=== PATIENT | female | born 1995 | race Caucasian/White ===

== ENCOUNTER 2017-07-18 22:53 | Emergency (ER) | payer OTHER ==
[~2017-07-18] VITALS: Ht 149.9 cm; Wt 56.8 kg
[~2017-07-18 22:53] MED LIST: AMITRIPTYLINE H10 M1 PO; BIRTH CONTROL PILLS; LAMICTAL150 MG PO; MINIPRESS2 MG PO; SEROQUEL400 MG PO; ZYPREXA15 MG PO
[2017-07-18 22:55] VITALS: BP 138/71; PULSE 118; TEMP 97.6
[2017-07-18] MEDS ORDERED: DEPAKOTE500 MG PO (23:01)
== END 2017-07-19 00:30 | disposition home or self-care (01) ==
LOC: COL.ER 22:53
DX: S71.111A Laceration without foreign body, right thigh, initial encounter (principal); F32.9 Major depressive disorder, single episode, unspecified; X83.8XXA Intentional self-harm by other specified means, initial encounter; Y92.009 Unspecified place in unspecified non-institutional (private) residence as the place of occurrence of the external cause

== ENCOUNTER 2017-07-25 16:48 | Emergency (ER) | payer OTHER ==
[~2017-07-25 16:48] MED LIST changes: +DEPAKOTE500 MG PO
[2017-07-25 16:52] VITALS: BP 122/56; PULSE 100; TEMP 98.4
== END 2017-07-25 17:07 | disposition home or self-care (01) ==
LOC: COL.ER 16:48
DX: Z48.02 Encounter for removal of sutures (principal)

== ENCOUNTER → 2017-10-24 | Outpatient (CLI) | payer OTHER | LOC: COL.RAD 07:58 | DX: R59.0 Localized enlarged lymph nodes (principal) ==

== ENCOUNTER → 2017-12-21 | Outpatient (CLI) | payer OTHER ==
[2017-12-21 22:49] LABS: RHEUMATOID FACTOR-SCREEN <15 IU/mL (0-29)
== END ==
LOC: COL.RAD 13:01
PROVIDERS: Family Medicine
DX: M25.542 Pain in joints of left hand (principal); M25.541 Pain in joints of right hand

== ENCOUNTER → 2018-01-03 | Outpatient (CLI) | payer OTHER ==
[2018-01-03 11:52] LABS: BASO # 0.1 (0.0-0.2); EOS # 0.2 (0.0-0.7); EOS % 2.6 % (0-4.0); GRAN % 54.9 % (42.2-75.2); HEMATOCRIT 39.3 % (37.0-47.0); LYMPH % 32.6 % (20.0-51.0); MEAN CELL VOLUME 95 fl (80.0-100.0); MEAN CORPUSCULAR HEMOGLOBIN 32 pg (27.0-31.0); MEAN CORPUSCULAR HGB CONC 33 g/dl (33.0-37.0); MEAN PLATELET VOLUME 8.5 fl (7.4-10.4); MONO # 0.7 (0.1-0.6); MONO % 7.7 % (1.7-9.3); PLATELET COUNT 460 K/mm3 (130-400); RED BLOOD COUNT 4.12 M/mm3 (4.10-5.30); REDCELL DISTRIBUTION WIDTH-CV 13.6 % (11.5-14.5)
[2018-01-04 01:09] LABS: COMPLEMENT-C3 232 mg/dL (79-152); COMPLEMENT-C4 26 mg/dL (18-55)
== END ==
LOC: COL.LAB 11:11
PROVIDERS: Family Medicine
DX: M25.50 Pain in unspecified joint (principal); R76.8 Other specified abnormal immunological findings in serum

== ENCOUNTER → 2018-03-27 | Outpatient (CLI) | payer OTHER ==
[2018-03-27 09:34] LABS: BASO % 0.4 % (0.0-2.0); EOS # 0.2 (0.0-0.7); EOS % 1.8 % (0-4.0); GRAN # 4.9 (1.4-6.5); GRAN % 51.6 % (42.2-75.2); HEMOGLOBIN 11.7 g/dl (12.5-16.0); LYMPH # 3.6 (1.2-3.4); MEAN CELL VOLUME 96 fl (80.0-100.0); MEAN CORPUSCULAR HEMOGLOBIN 32 pg (27.0-31.0); MEAN CORPUSCULAR HGB CONC 34 g/dl (33.0-37.0); MONO # 0.8 (0.1-0.6); MONO % 7.9 % (1.7-9.3); PLATELET COUNT 309 K/mm3 (130-400); RED BLOOD COUNT 3.61 M/mm3 (4.10-5.30); REDCELL DISTRIBUTION WIDTH-CV 14.2 % (11.5-14.5)
[2018-03-27 09:35] LABS: HEMATOCRIT 34.6 % (37.0-47.0)
[2018-03-27 09:55] LABS: ALBUMIN 3.5 gm/dL (3.5-5.0); BILIRUBIN,DIRECT 0.1 mg/dL (0.0-0.4); BILIRUBIN,TOTAL 0.1 mg/dL (0.0-1.0); LITHIUM 0.3 mmol/L (0.6-1.2); TOTAL PROTEIN 6.7 gm/dL (6.4-8.2)
[2018-03-27 09:59] LABS: VALPROIC ACID (DEPAKENE) 56.5 ug/mL (50.0-100.0)
[2018-03-27 10:40] LABS: THYROID STIMULATING HORMONE 9.84 uIU/mL (0.465-4.680)
== END ==
LOC: COL.LAB 08:34
PROVIDERS: Psychiatry & Neurology Psychiatry
DX: Z79.899 Other long term (current) drug therapy (principal)

== ENCOUNTER → 2018-04-09 | Outpatient (CLI) | payer OTHER ==
[2018-04-09 14:05] LABS: BASO # 0.1 (0.0-0.2); BASO % 0.6 % (0.0-2.0); EOS # 0.1 (0.0-0.7); EOS % 1.4 % (0-4.0); GRAN # 4.8 (1.4-6.5); GRAN % 60.5 % (42.2-75.2); HEMOGLOBIN 11.5 g/dl (12.5-16.0); LYMPH # 2.2 (1.2-3.4); LYMPH % 27.9 % (20.0-51.0); MEAN CELL VOLUME 95 fl (80.0-100.0); MEAN CORPUSCULAR HEMOGLOBIN 31 pg (27.0-31.0); MEAN CORPUSCULAR HGB CONC 32 g/dl (33.0-37.0); MONO # 0.7 (0.1-0.6); MONO % 9.3 % (1.7-9.3); PLATELET COUNT 359 K/mm3 (130-400); RED BLOOD COUNT 3.75 M/mm3 (4.10-5.30); REDCELL DISTRIBUTION WIDTH-CV 14.4 % (11.5-14.5)
[2018-04-09 14:06] LABS: HEMATOCRIT 35.5 % (37.0-47.0)
[2018-04-09 14:22] LABS: ALBUMIN 3.6 gm/dL (3.5-5.0); BILIRUBIN,DIRECT 0.2 mg/dL (0.0-0.4); BILIRUBIN,TOTAL 0.3 mg/dL (0.0-1.0); TOTAL PROTEIN 6.8 gm/dL (6.4-8.2)
[2018-04-09 14:27] LABS: VALPROIC ACID (DEPAKENE) 39.3 ug/mL (50.0-100.0)
[2018-04-09 14:35] LABS: LITHIUM 0.4 mmol/L (0.6-1.2)
[2018-04-09 15:11] LABS: THYROID STIMULATING HORMONE 4.85 uIU/mL (0.465-4.680)
== END ==
LOC: COL.LAB 13:30
PROVIDERS: Counselor
DX: Z79.899 Other long term (current) drug therapy (principal)

== ENCOUNTER → 2018-04-26 | Outpatient (CLI) | payer OTHER ==
[2018-04-26 11:57] LABS: THYROID STIMULATING HORMONE 13.5 uIU/mL (0.465-4.680)
[2018-04-26 23:37] LABS: T3 FREE (TRI-IODOTHYRONINE) 1.9 pg/mL (1.7-3.7)
== END ==
LOC: COL.LAB 10:15
PROVIDERS: Family Medicine
DX: R94.6 Abnormal results of thyroid function studies (principal); R06.00 Dyspnea, unspecified

== ENCOUNTER → 2018-06-03 | Outpatient (CLI) | payer OTHER ==
[2018-06-03 17:47] LABS: COLLECTION METHOD CLEAN CATCH
[2018-06-03 17:57] LABS: MUCOUS Present /lpf; PH 5 (5-8); URINE APPEARANCE Turbid; URINE BACTERIA None Seen /hpf; URINE BILIRUBIN Negative (NEGATIVE); URINE BLOOD 1+ (NEGATIVE); URINE COLOR Amber; URINE GLUCOSE Negative (NEGATIVE); URINE KETONE Negative (NEGATIVE); URINE LEUKOCYTE ESTERASE Negative (NEGATIVE); URINE NITRATE Negative (NEGATIVE); URINE PROTEIN(semi-quant) 1+ (NEGATIVE); URINE UROBILINOGEN Negative (NEGATIVE)
== END ==
LOC: ZCOL.LAB 17:30
PROVIDERS: Family Medicine
DX: R35.1 Nocturia (principal)

== ENCOUNTER → 2018-06-10 | Outpatient (CLI) | payer OTHER | LOC: COL.RAD 10:30 | DX: E04.9 Nontoxic goiter, unspecified (principal) ==

== ENCOUNTER 2018-07-01 18:26 | Emergency (ER) | payer OTHER ==
[~2018-07-01] VITALS: Ht 149.9 cm; Wt 68.2 kg
[2018-07-01 19:08] LABS: BASO # 0.1 (0.0-0.2); BASO % 0.6 % (0.0-2.0); EOS % 0.2 % (0-4.0); GRAN # 11.3 (1.4-6.5); GRAN % 72.4 % (42.2-75.2); HEMATOCRIT 37.9 % (37.0-47.0); HEMOGLOBIN 12.5 g/dl (12.5-16.0); LYMPH # 3.1 (1.2-3.4); LYMPH % 19.6 % (20.0-51.0); MEAN CELL VOLUME 94 fl (80.0-100.0); MEAN CORPUSCULAR HEMOGLOBIN 31 pg (27.0-31.0); MEAN CORPUSCULAR HGB CONC 33 g/dl (33.0-37.0); MEAN PLATELET VOLUME 8.6 fl (7.4-10.4); MONO # 1.1 (0.1-0.6); MONO % 6.8 % (1.7-9.3); PLATELET COUNT 409 K/mm3 (130-400); RED BLOOD COUNT 4.04 M/mm3 (4.10-5.30); REDCELL DISTRIBUTION WIDTH-CV 14.3 % (11.5-14.5)
[2018-07-01 19:22] LABS: ALANINE AMINOTRANSFERASE 22 U/L (9-52); ALBUMIN 3.9 gm/dL (3.5-5.0); ALKALINE PHOSPHATASE 74 U/L (50-136); ANION GAP 8 mmol/L (7-16); AST,SGOT 22 U/L (15-37); BILIRUBIN,TOTAL 0.2 mg/dL (0.0-1.0); BLOOD UREA NITROGEN 10 mg/dL (7-17); CALCIUM 9.1 mg/dL (8.4-10.2); CARBON DIOXIDE 24 mmol/L (22-30); CHLORIDE 108 mmol/L (98-107); CREATININE, serum 0.81 mg/dL (0.52-1.25); GLUCOSE 86 mg/dL (74-106); SODIUM 140 mmol/L (137-145); TOTAL PROTEIN 7.2 gm/dL (6.4-8.2)
[2018-07-01 19:24] LABS: ACETAMINOPHEN < 10 ug/mL (10-30); ALCOHOL(ethanol),MEDICAL < 10 mg/dL; SALICYLATE < 1.0 mg/dL
[2018-07-01 21:17] LABS: COLLECTION METHOD CLEAN CATCH
[2018-07-01 21:35] LABS: MUCOUS Present /lpf; PH 5 (5-8); URINE APPEARANCE Hazy; URINE BACTERIA None Seen /hpf; URINE BILIRUBIN Negative (NEGATIVE); URINE BLOOD 2+ (NEGATIVE); URINE COLOR Yellow; URINE GLUCOSE Negative (NEGATIVE); URINE KETONE 1+ (NEGATIVE); URINE LEUKOCYTE ESTERASE Trace (NEGATIVE); URINE NITRATE Negative (NEGATIVE); URINE PROTEIN(semi-quant) 1+ (NEGATIVE); URINE RBC 0-2 /hpf; URINE UROBILINOGEN Negative (NEGATIVE)
[2018-07-01 21:42] LABS: TRICYCLIC ANTIDEPRESS URINE POSITIVE
[2018-07-01 22:01] LABS: COLLECTION METHOD CATHETER
[2018-07-01 22:10] LABS: MUCOUS Present /lpf; PH 5 (5-8); SQUAMOUS EPITHELIAL 0-2 /hpf; URINE APPEARANCE Clear; URINE BACTERIA None Seen /hpf; URINE BILIRUBIN Negative (NEGATIVE); URINE BLOOD 2+ (NEGATIVE); URINE COLOR Yellow; URINE GLUCOSE Negative (NEGATIVE); URINE KETONE 1+ (NEGATIVE); URINE LEUKOCYTE ESTERASE Trace (NEGATIVE); URINE NITRATE Negative (NEGATIVE); URINE PROTEIN(semi-quant) 1+ (NEGATIVE)
[2018-07-02 00:45] VITALS: TEMP 98.8
[2018-07-02] MEDS ORDERED: CEFTIN 250250 MG/TAB PO (03:01)
[2018-07-02 04:12] VITALS: BP 123/80; PULSE 107
== END 2018-07-02 05:08 | disposition home or self-care (01) ==
LOC: COL.ER 18:26
PROVIDERS: Nurse Practitioner
DX: S71.112A Laceration without foreign body, left thigh, initial encounter (principal); F32.9 Major depressive disorder, single episode, unspecified; F20.9 Schizophrenia, unspecified; Z23 Encounter for immunization; X78.9XXA Intentional self-harm by unspecified sharp object, initial encounter

== ENCOUNTER 2018-10-22 15:19 | Emergency (ER) | payer OTHER ==
[~2018-10-22] VITALS: Ht 149.9 cm; Wt 63.6 kg
[~2018-10-22 15:19] MED LIST changes: +CEFTIN 250250 MG/TAB PO
[2018-10-22 16:11] LABS: COLLECTION METHOD CLEAN CATCH
[2018-10-22 16:20] LABS: MUCOUS Present /lpf; PH 5 (5-8); SQUAMOUS EPITHELIAL 0-2 /hpf; URINE APPEARANCE Clear; URINE BACTERIA Rare /hpf; URINE BILIRUBIN Negative (NEGATIVE); URINE BLOOD 1+ (NEGATIVE); URINE COLOR Yellow; URINE GLUCOSE Negative (NEGATIVE); URINE KETONE Negative (NEGATIVE); URINE LEUKOCYTE ESTERASE 1+ (NEGATIVE); URINE NITRATE Negative (NEGATIVE); URINE PROTEIN(semi-quant) Negative (NEGATIVE)
[2018-10-22 16:26] LABS: BASO # 0.1 (0.0-0.2); BASO % 0.4 % (0.0-2.0); EOS # 0.1 (0.0-0.7); EOS % 0.4 % (0-4.0); GRAN # 9.3 (1.4-6.5); GRAN % 68.4 % (42.2-75.2); HEMATOCRIT 38.7 % (37.0-47.0); HEMOGLOBIN 12.8 g/dl (12.5-16.0); LYMPH # 3.2 (1.2-3.4); LYMPH % 23.3 % (20.0-51.0); MEAN CELL VOLUME 88 fl (80.0-100.0); MEAN CORPUSCULAR HEMOGLOBIN 29 pg (27.0-31.0); MEAN CORPUSCULAR HGB CONC 33 g/dl (33.0-37.0); MEAN PLATELET VOLUME 8.8 fl (7.4-10.4); MONO % 7.3 % (1.7-9.3); PLATELET COUNT 566 K/mm3 (130-400); RED BLOOD COUNT 4.38 M/mm3 (4.10-5.30); REDCELL DISTRIBUTION WIDTH-CV 15.4 % (11.5-14.5)
[2018-10-22 16:32] LABS: TRICYCLIC ANTIDEPRESS URINE POSITIVE
[2018-10-22 17:22] LABS: ALANINE AMINOTRANSFERASE 19 U/L (9-52); ALBUMIN 4.1 gm/dL (3.5-5.0); ALKALINE PHOSPHATASE 116 U/L (50-136); ANION GAP 10 mmol/L (7-16); AST,SGOT 36 U/L (15-37); BILIRUBIN,TOTAL 0.2 mg/dL (0.0-1.0); BLOOD UREA NITROGEN 7 mg/dL (7-17); CALCIUM 9.2 mg/dL (8.4-10.2); CARBON DIOXIDE 22 mmol/L (22-30); CHLORIDE 105 mmol/L (98-107); CREATININE, serum 0.73 (0.52-1.25); GLUCOSE 109 mg/dL (74-106); POTASSIUM 3.9 mmol/L (3.4-5.0); SODIUM 137 mmol/L (137-145); TOTAL PROTEIN 7.6 gm/dL (6.4-8.2)
[2018-10-22 17:34] LABS: ACETAMINOPHEN < 10 ug/mL (10-30); ALCOHOL(ethanol),MEDICAL < 10 mg/dL; SALICYLATE < 1.0 mg/dL
[2018-10-22] MEDS ORDERED: KLONOPIN WAFE0.25 MG PO (19:43)
[2018-10-22] MEDS ORDERED: NEURONTIN300 MG/CAP PO (19:43)
[2018-10-22] MEDS ORDERED: WELLBUTRIN XL150 MG PO (19:43)
[2018-10-22] MEDS ORDERED: SYNTHROID0.075 MG/T PO (19:44)
[2018-10-22] MEDS ORDERED: LEVORA-28 30 MC1 TA1 PO (19:44)
[2018-10-22] MEDS ORDERED: LATUDA80 MG PO (19:44)
[2018-10-22] MEDS ORDERED: MINIPRESS2 MG (19:44)
[2018-10-22] MEDS ORDERED: ZOLOFT 25MG25 MG PO (19:45)
[2018-10-22] MEDS ORDERED: SEROQUEL400 MG PO (19:45)
[2018-10-23 07:01] VITALS: BP 102/61; PULSE 101; TEMP 97.4
== END 2018-10-23 08:12 ==
LOC: COL.ER 15:19
PROVIDERS: Nurse Practitioner
DX: S71.111A Laceration without foreign body, right thigh, initial encounter (principal); F32.9 Major depressive disorder, single episode, unspecified; F43.10 Post-traumatic stress disorder, unspecified; F20.0 Paranoid schizophrenia; Z91.5 Personal history of self-harm; X78.9XXA Intentional self-harm by unspecified sharp object, initial encounter
CPT/HCPCS: J1885; J7030

== ENCOUNTER 2018-10-30 10:12 | Emergency (ER) | payer OTHER ==
[~2018-10-30 10:12] MED LIST changes: +KLONOPIN WAFE0.25 MG PO; +LATUDA80 MG PO; +LEVORA-28 30 MC1 TA1 PO; +MINIPRESS2 MG; +NEURONTIN300 MG/CAP PO; +SYNTHROID0.075 MG/T PO; +WELLBUTRIN XL150 MG PO; +ZOLOFT 25MG25 MG PO
[2018-10-30 10:18] VITALS: BP 117/72; PULSE 107; TEMP 98.6
== END 2018-10-30 10:26 | disposition home or self-care (01) ==
LOC: COL.ER 10:12
DX: S71.111D Laceration without foreign body, right thigh, subsequent encounter (principal)

== ENCOUNTER → 2020-03-23 | Outpatient (CLI) | payer OTHER ==
[2020-03-23 16:20] LABS: ALBUMIN 4.6 gm/dL (3.5-5.0); BILIRUBIN,TOTAL 0.4 mg/dL (0.0-1.0); CALCIUM 9.6 mg/dL (8.4-10.2); CHOLESTEROL RISK RATIO 3.2; CREATININE, serum 0.91 (0.52-1.25); TOTAL PROTEIN 7.9 gm/dL (6.4-8.2)
[2020-03-23 16:36] LABS: PROLACTIN 99.9 ng/mL (3.0-18.6)
== END ==
LOC: COL.LAB 14:56
DX: F25.0 Schizoaffective disorder, bipolar type (principal); F33.1 Major depressive disorder, recurrent, moderate; F43.10 Post-traumatic stress disorder, unspecified

== ENCOUNTER → 2020-11-03 | Outpatient (CLI) | payer OTHER ==
[2020-11-03 13:41] LABS: ALBUMIN 4.6 gm/dL (3.5-5.0); BILIRUBIN,TOTAL 0.1 mg/dL (0.0-1.0); CALCIUM 9.5 mg/dL (8.4-10.2); CHOLESTEROL RISK RATIO 2.8; CREATININE, serum 0.84 (0.52-1.25); TOTAL PROTEIN 8.3 gm/dL (6.4-8.2)
[2020-11-03 13:57] LABS: PROLACTIN 12.9 ng/mL (3.0-18.6)
== END ==
LOC: COL.LAB 12:59
PROVIDERS: Nurse Practitioner Psychiatric/Mental Health
DX: F25.8 Other schizoaffective disorders (principal); F33.1 Major depressive disorder, recurrent, moderate

== ENCOUNTER 2021-08-02 13:25 | Emergency (ER) | payer OTHER ==
[~2021-08-02] VITALS: Ht 149.9 cm; Wt 50.0 kg
[2021-08-02 14:01] VITALS: TEMP 98.2
[2021-08-02 18:08] VITALS: BP 112/63; PULSE 79
== END 2021-08-02 19:08 | disposition home or self-care (01) ==
LOC: COL.ER 13:25
DX: S71.112A Laceration without foreign body, left thigh, initial encounter (principal); F41.9 Anxiety disorder, unspecified; F32.A Depression, unspecified; F43.10 Post-traumatic stress disorder, unspecified; F25.9 Schizoaffective disorder, unspecified; X78.8XXA Intentional self-harm by other sharp object, initial encounter

== ENCOUNTER → 2021-08-13 | Outpatient (CLI) | payer OTHER ==
[2021-08-13 09:21] VITALS: BP 104/67; PULSE 54; TEMP 97.8
== END ==
LOC: COL.ER 09:15
DX: Z48.02 Encounter for removal of sutures (principal)

== ENCOUNTER 2021-08-24 20:21 | Emergency (ER) | payer OTHER ==
[~2021-08-24] VITALS: Ht 149.9 cm; Wt 50.0 kg
[2021-08-24 21:10] LABS: TRICYCLIC ANTIDEPRESS URINE NEGATIVE
[2021-08-24 21:50] LABS: BASO # 0.1 K/mm3 (0.0-0.2); BASO % 0.5 % (0.0-2.0); EOS # 0.1 K/mm3 (0.0-0.7); EOS % 0.9 % (0.0-4.0); GRAN # 7.7 K/mm3 (1.4-6.5); HEMATOCRIT 41.4 % (37.0-47.0); HEMOGLOBIN 13.5 g/dl (12.5-16.0); LYMPH # 2.4 K/mm3 (1.2-3.4); LYMPH % 21.7 % (20.0-51.0); MEAN CELL VOLUME 100 fl (80.0-100.0); MEAN CORPUSCULAR HEMOGLOBIN 33 pg (27-31); MEAN CORPUSCULAR HGB CONC 33 g/dl (33.0-37.0); MONO # 0.7 K/mm3 (0.1-0.6); MONO % 6.7 % (1.7-9.3); PLATELET COUNT 370 K/mm3 (130-400); RED BLOOD COUNT 4.16 M/mm3 (4.10-5.30); REDCELL DISTRIBUTION WIDTH-CV 12.6 % (11.5-14.5)
[2021-08-24 22:08] LABS: ALANINE AMINOTRANSFERASE 43 U/L (0-55); ALBUMIN 3.9 gm/dL (3.5-5.0); ALKALINE PHOSPHATASE 117 U/L (40-150); ANION GAP 7 mmol/L (7-16); AST,SGOT 25 U/L (5-34); BILIRUBIN,TOTAL 0.3 mg/dL (0.2-1.2); BLOOD UREA NITROGEN 8 mg/dL (7-19); CALCIUM 9.1 mg/dL (8.4-10.2); CARBON DIOXIDE 24 mmol/L (22-29); CHLORIDE 107 mmol/L (98-107); CREATININE, serum 0.77 mg/dL (0.57-1.11); GLUCOSE 91 mg/dL (70-99); POTASSIUM 3.8 mmol/L (3.5-4.5); SODIUM 138 mmol/L (136-145); TOTAL PROTEIN 6.8 gm/dL (6.2-8.1)
[2021-08-24 22:10] LABS: ALCOHOL(ethanol),MEDICAL < 10 mg/dL (0-10); SALICYLATE < 5.0 mg/dL (15.0-30.0)
[2021-08-24 23:59] VITALS: BP 118/65; PULSE 70; TEMP 98.6
== END 2021-08-24 23:59 | disposition home or self-care (01) ==
LOC: COL.ER 20:21
PROVIDERS: Personal Emergency Response Attendant
DX: T22.212A Burn of second degree of left forearm, initial encounter (principal); R45.851 Suicidal ideations; F43.10 Post-traumatic stress disorder, unspecified; F25.9 Schizoaffective disorder, unspecified; F32.A Depression, unspecified; E06.9 Thyroiditis, unspecified; Z79.890 Hormone replacement therapy; Z79.899 Other long term (current) drug therapy; X76.XXXA Intentional self-harm by smoke, fire and flames, initial encounter

== ENCOUNTER → 2021-09-27 | Outpatient (CLI) | payer OTHER ==
[2021-09-27 11:17] LABS: BASO # 0.1 K/mm3 (0.0-0.2); BASO % 0.5 % (0.0-2.0); EOS % 0.2 % (0.0-4.0); GRAN # 9.1 K/mm3 (1.4-6.5); GRAN % 82.6 % (42.2-75.2); HEMATOCRIT 38.3 % (37.0-47.0); HEMOGLOBIN 12.8 g/dl (12.5-16.0); LYMPH # 1.2 K/mm3 (1.2-3.4); MEAN CELL VOLUME 95 fl (80.0-100.0); MEAN CORPUSCULAR HEMOGLOBIN 32 pg (27-31); MEAN CORPUSCULAR HGB CONC 33 g/dl (33.0-37.0); MEAN PLATELET VOLUME 8.7 fl (7.4-10.4); MONO # 0.6 K/mm3 (0.1-0.6); MONO % 5.4 % (1.7-9.3); PLATELET COUNT 444 K/mm3 (130-400); RED BLOOD COUNT 4.03 M/mm3 (4.10-5.30); REDCELL DISTRIBUTION WIDTH-CV 13.1 % (11.5-14.5)
[2021-09-27 11:32] LABS: ALBUMIN 3.9 gm/dL (3.5-5.0); BILIRUBIN,TOTAL 0.8 mg/dL (0.2-1.2); CALCIUM 9.3 mg/dL (8.4-10.2); CHOLESTEROL RISK RATIO 2.4; CREATININE, serum 1.02 mg/dL (0.57-1.11); PHOSPHOROUS 4.6 mg/dL (2.3-4.7); POTASSIUM 4.1 mmol/L (3.5-4.5); TOTAL PROTEIN 7.2 gm/dL (6.2-8.1)
[2021-09-27 11:51] LABS: THYROID STIMULATING HORMONE 0.843 uIU/mL (0.350-4.940)
[2021-09-27 12:08] LABS: BILIRUBIN,DIRECT 0.3 mg/dL (0.0-0.5)
== END ==
LOC: COL.LAB 10:50
PROVIDERS: Nurse Practitioner Psychiatric/Mental Health
DX: Z79.899 Other long term (current) drug therapy (principal)

== ENCOUNTER 2021-11-30 15:10 | Emergency (ER) | payer OTHER ==
[~2021-11-30] VITALS: Ht 149.9 cm; Wt 49.5 kg
[2021-11-30 15:52] VITALS: TEMP 97.9
[2021-11-30 17:50] VITALS: BP 131/83; PULSE 89
== END 2021-11-30 17:50 | disposition home or self-care (01) ==
LOC: COL.ER 15:10
DX: S81.812A Laceration without foreign body, left lower leg, initial encounter (principal); Z23 Encounter for immunization; X78.8XXA Intentional self-harm by other sharp object, initial encounter

== ENCOUNTER 2021-12-04 22:46 | Emergency (ER) | payer OTHER ==
[~2021-12-04] VITALS: Ht 149.9 cm; Wt 48.2 kg
[2021-12-04 22:55] VITALS: BP 106/33; TEMP 97.7
[2021-12-04] MEDS ORDERED: VRAYLAR6 MG PO (23:00)
[2021-12-04 23:28] VITALS: PULSE 56
== END 2021-12-04 23:28 | disposition home or self-care (01) ==
LOC: COL.ER 22:46
DX: S81.812D Laceration without foreign body, left lower leg, subsequent encounter (principal); Z91.51 Personal history of suicidal behavior; W26.0XXD Contact with knife, subsequent encounter

== ENCOUNTER 2021-12-05 13:29 | Emergency (ER) | payer OTHER ==
[~2021-12-05] VITALS: Ht 149.9 cm; Wt 48.2 kg
[~2021-12-05 13:29] MED LIST changes: +VRAYLAR6 MG PO
[2021-12-05 14:45] LABS: BASO % 0.6 % (0.0-2.0); EOS # 0.1 K/mm3 (0.0-0.7); EOS % 1.2 % (0.0-4.0); GRAN # 4.5 K/mm3 (1.4-6.5); GRAN % 65.1 % (42.2-75.2); LYMPH # 1.7 K/mm3 (1.2-3.4); LYMPH % 24.9 % (20.0-51.0); MEAN CELL VOLUME 98 fl (80.0-100.0); MEAN CORPUSCULAR HEMOGLOBIN 31 pg (27-31); MEAN CORPUSCULAR HGB CONC 32 g/dl (33.0-37.0); MEAN PLATELET VOLUME 9.4 fl (7.4-10.4); MONO # 0.6 K/mm3 (0.1-0.6); MONO % 8.1 % (1.7-9.3); PLATELET COUNT 346 K/mm3 (130-400); RED BLOOD COUNT 3.52 M/mm3 (4.10-5.30); REDCELL DISTRIBUTION WIDTH-CV 12.8 % (11.5-14.5)
[2021-12-05 14:49] LABS: HEMATOCRIT 34.5 % (37.0-47.0)
[2021-12-05 15:05] LABS: ALANINE AMINOTRANSFERASE 8 U/L (0-55); ALBUMIN 3.7 gm/dL (3.5-5.0); ALKALINE PHOSPHATASE 109 U/L (40-150); ANION GAP 8 mmol/L (7-16); AST,SGOT 13 U/L (5-34); BILIRUBIN,TOTAL 0.4 mg/dL (0.2-1.2); BLOOD UREA NITROGEN 10 mg/dL (7-19); CALCIUM 8.7 mg/dL (8.4-10.2); CARBON DIOXIDE 25 mmol/L (22-29); CHLORIDE 109 mmol/L (98-107); CREATININE, serum 0.72 mg/dL (0.57-1.11); GLUCOSE 89 mg/dL (70-99); POTASSIUM 3.9 mmol/L (3.5-4.5); SODIUM 142 mmol/L (136-145); TOTAL PROTEIN 6.4 gm/dL (6.2-8.1)
[2021-12-05 15:07] LABS: ALCOHOL(ethanol),MEDICAL < 10 mg/dL (0-10); SALICYLATE < 5.0 mg/dL (15.0-30.0)
[2021-12-05 15:25] LABS: TSH w REFLEX 0.035 uIU/mL (0.350-4.940)
[2021-12-05 16:22] LABS: COLLECTION METHOD CLEAN CATCH
[2021-12-05 16:30] LABS: MUCOUS Present (NOT PRESENT); PH 6 (5-8); URINE APPEARANCE Hazy (CLEAR/HAZY); URINE BACTERIA Rare /hpf (NONE SEEN); URINE BILIRUBIN Negative (NEGATIVE); URINE BLOOD 2+ (NEGATIVE); URINE COLOR Yellow (YELLOW); URINE GLUCOSE Negative (NEGATIVE); URINE KETONE Negative (NEGATIVE); URINE LEUKOCYTE ESTERASE Negative (NEGATIVE); URINE NITRATE Negative (NEGATIVE); URINE PROTEIN(semi-quant) Negative (NEGATIVE); URINE RBC >50 /hpf (0-2)
[2021-12-05 16:36] LABS: TRICYCLIC ANTIDEPRESS URINE NEGATIVE
[2021-12-06 03:05] VITALS: BP 104/63; PULSE 55; TEMP 98.2
== END 2021-12-06 03:05 ==
LOC: COL.ER 13:29
PROVIDERS: Physician Assistant
DX: S81.812A Laceration without foreign body, left lower leg, initial encounter (principal); S70.922A Unspecified superficial injury of left thigh, initial encounter; S70.921A Unspecified superficial injury of right thigh, initial encounter; S40.922A Unspecified superficial injury of left upper arm, initial encounter; S40.921A Unspecified superficial injury of right upper arm, initial encounter; T22.111A Burn of first degree of right forearm, initial encounter; T22.112A Burn of first degree of left forearm, initial encounter; T24.101A Burn of first degree of unspecified site of right lower limb, except ankle and foot, initial encounter; X83.8XXA Intentional self-harm by other specified means, initial encounter

== ENCOUNTER 2021-12-16 14:03 | Emergency (ER) | payer OTHER ==
[~2021-12-16] VITALS: Ht 149.9 cm; Wt 49.1 kg
[2021-12-16 14:19] VITALS: TEMP 97.8
[2021-12-16 17:12] LABS: HEMATOCRIT 37.6 % (37.0-47.0); HEMOGLOBIN 12.4 g/dl (12.5-16.0); MEAN CELL VOLUME 97 fl (80.0-100.0); MEAN CORPUSCULAR HEMOGLOBIN 32 pg (27-31); MEAN CORPUSCULAR HGB CONC 33 g/dl (33.0-37.0); MEAN PLATELET VOLUME 9.3 fl (7.4-10.4); PLATELET COUNT 402 K/mm3 (130-400); RED BLOOD COUNT 3.89 M/mm3 (4.10-5.30); REDCELL DISTRIBUTION WIDTH-CV 12.7 % (11.5-14.5)
[2021-12-16 17:48] LABS: BILIRUBIN,TOTAL 0.3 mg/dL (0.2-1.2); CALCIUM 9.3 mg/dL (8.4-10.2); CREATININE, serum 0.86 mg/dL (0.57-1.11); POTASSIUM 3.9 mmol/L (3.5-4.5); TOTAL PROTEIN 7.3 gm/dL (6.2-8.1)
[2021-12-16 18:01] LABS: BAND 7 % (0-10); LYMPHOCYTE 5 % (20.0-51.0); NEUTROPHILS 84 % (42.0-75.2); PLATELET ESTIMATE INCREASED (NORMAL)
[2021-12-16 18:02] LABS: HYPOCHROMIA 1+
[2021-12-16 19:22] LABS: COLLECTION METHOD CLEAN CATCH
[2021-12-16 19:34] LABS: MUCOUS Present (NOT PRESENT); PH 5 (5-8); SQUAMOUS EPITHELIAL 0-2 /hpf (0-10); URINE APPEARANCE Clear (CLEAR/HAZY); URINE BACTERIA None Seen /hpf (NONE SEEN); URINE BILIRUBIN Negative (NEGATIVE); URINE BLOOD 3+ (NEGATIVE); URINE COLOR Yellow (YELLOW); URINE GLUCOSE Negative (NEGATIVE); URINE KETONE Negative (NEGATIVE); URINE LEUKOCYTE ESTERASE Negative (NEGATIVE); URINE NITRATE Negative (NEGATIVE); URINE PROTEIN(semi-quant) Negative (NEGATIVE); URINE UROBILINOGEN Negative (NEGATIVE)
[2021-12-16] MEDS ORDERED: CIPRO 500MG TA500 MG PO (19:46)
[2021-12-16 21:04] VITALS: BP 102/66; PULSE 62
[2021-12-17] MEDS ORDERED: PERIACTIN 4MG TA4 MG PO (22:47)
[2021-12-17] MEDS ORDERED: FLEXERIL 1010 MG/TAB PO ×2 (22:47)
[2021-12-17] MEDS ORDERED: REGLAN 10MG10 MG/TAB PO (23:41)
== END 2021-12-16 21:05 | disposition home or self-care (01) ==
LOC: COL.ER 14:03
PROVIDERS: Emergency Medicine
DX: N12 Tubulo-interstitial nephritis, not specified as acute or chronic (principal); Z32.02 Encounter for pregnancy test, result negative
CPT/HCPCS: J0744; J2270; J2405; J7030; Q9967

== ENCOUNTER 2021-12-17 22:12 | Emergency (ER) | payer OTHER ==
[~2021-12-17] VITALS: Ht 149.9 cm; Wt 50.0 kg
[~2021-12-17 22:12] MED LIST changes: +CIPRO 500MG TA500 MG PO
[2021-12-17 22:18] VITALS: TEMP 97.6
[2021-12-17] MEDS ORDERED: FLEXERIL 1010 MG/TAB PO ×2 (22:47)
[2021-12-17] MEDS ORDERED: PERIACTIN 4MG TA4 MG PO (22:47)
[2021-12-17] MEDS ORDERED: REGLAN 10MG10 MG/TAB PO (23:41)
[2021-12-17 23:59] VITALS: BP 107/61; PULSE 54
== END 2021-12-18 | disposition home or self-care (01) ==
LOC: COL.ER 22:12
DX: R11.0 Nausea (principal); R53.83 Other fatigue; R53.81 Other malaise; R10.9 Unspecified abdominal pain; Z28.310 Unvaccinated for COVID-19
CPT/HCPCS: J0696; J1885; J2765; J7030